=== PATIENT | male | born 1990 | race American Indian/Alaskan Native ===

== ENCOUNTER 2023-08-13 02:06 | Observation (INO) | payer OTHER ==
[2023-08-13] MEDS ORDERED: KETOROLAC TROMETHAMINE 30 MG/1 ML VIAL ONE ×2 (02:37→17:45)
[2023-08-13] MEDS ORDERED: ONDANSETRON 4 MG/2 ML VIAL ONE ×2 (02:37→17:45)
[2023-08-13] MEDS: KETOROLAC TROMETHAMINE 30 MG/1 ML VIAL IM ONE (02:54)
[2023-08-13] MEDS: ONDANSETRON 4 MG/2 ML VIAL IVPUSH ONE (02:54)
[2023-08-13] MEDS ORDERED: HYDROmorphone HCl 2 MG/ML VIAL ONE ×2 (03:00→04:49)
[2023-08-13 03:02] LABS: BASO % 0.3 % (0-2.0); EOS % 1.3 % (0-4.5); HEMATOCRIT 42.1 % (35.4-49); HEMOGLOBIN 14.5 GM/dL (11.7-16.9); LYMPH % 29.9 % (8-40); MCH 30.4 pg (25.7-33.7); MCHC 34.5 g/dl (32.0-35.9); MEAN PLT VOLUME 8.2 fl (7.5-11.1); MONO % 4.8 % (3.8-10.2); NEUT % 63.7 % (42.8-82.8); PLATELET COUNT 220 10^3/uL (134-434); RBC 4.78 M/mm3 (4.00-5.60); RDW 13.2 % (11.9-15.9); WHITE BLOOD COUNT 13.5 K/mm3 (4.0-10.0)
[2023-08-13] MEDS: HYDROmorphone HCl 2 MG/ML VIAL IVPUSH ONE ×2 (03:06→04:52)
[2023-08-13] MEDS: LACTATED RINGERS SOLUTION 1000 ML INFUS.BAG IV ONE ×2 (03:07→05:07)
[2023-08-13 03:11] LABS: INR 1.1 (0.83-1.09); PROTHROMBIN TIME (PATIENT) 12.7 SEC (9.7-13.0)
[2023-08-13 03:13] LABS: ACTIVATED PTT 29.4 SECONDS (25.2-36.5)
[2023-08-13 03:20] LABS: POTASSIUM 3.4 mmol/L (3.5-5.1)
[2023-08-13 03:22] LABS: ALBUMIN 3.9 g/dl (3.4-5.0); CALCIUM 9.4 mg/dL (8.5-10.1)
[2023-08-13 03:23] LABS: BLOOD UREA NITROGEN 10.2 mg/dL (7-18)
[2023-08-13 03:25] LABS: CREATININE 1.1 mg/dL (0.55-1.3)
[2023-08-13 03:27] LABS: BILIRUBIN,TOTAL 0.7 mg/dL (0.2-1); TOT PROT 7.4 g/dl (6.4-8.2)
[2023-08-13] MEDS ORDERED: TAMSULOSIN HCL 0.4 MG CAP ONE (05:01)
[2023-08-13] MEDS: TAMSULOSIN HCL 0.4 MG CAP PO ONE (05:05)
[2023-08-13] MEDS ORDERED: CEFTRIAXONE 1 GM/50 ML BAG ONE (05:06)
[2023-08-13 05:52] LABS: EPI CELLS 25 /uL (0-25.1); HYALINE CASTS 0 /uL (0-3.1); PH,URINE 7.5 (5.0-8.0); URINE APPEARANCE CLEAR; URINE BACTERIA 12 /uL (0-1359); URINE BILIRUBIN NEGATIVE (NEGATIVE); URINE COLOR YELLOW; URINE GLUCOSE (UA) NEGATIVE (NEGATIVE); URINE KETONE NEGATIVE (NEGATIVE); URINE LEUK ESTERASE NEGATIVE (NEGATIVE); URINE NITRITE NEGATIVE (NEGATIVE); URINE PROTEIN NEGATIVE (NEGATIVE); URINE RBC 420 /uL (0-23.9); URINE WBC 19 /uL (0-25.8)
[2023-08-13] MEDS ORDERED: ONDANSETRON 4 MG/2 ML VIAL IVPUSH PRN ×2 (09:09→19:13)
[2023-08-13 10:00] LABS: MAGNESIUM 1.6 mg/dL (1.8-2.4)
[2023-08-13 10:04] LABS: PHOSPHOROUS 2.3 mg/dL (2.5-4.9)
[2023-08-13] MEDS: ACETAMINOPHEN 1000 MG/100 ML BAG IVPB PRN (10:31)
[2023-08-13] MEDS: LACTATED RINGERS SOLUTION 1,000 ML IV SCH (10:37)
[2023-08-13] MEDS: KCL 10 MEQ IVPB 10 MEQ/100 ML INFUS.BAG IVPB SCH (10:40)
[2023-08-13 11:05] VITALS: BMI 22.3
[2023-08-13] MEDS: KETOROLAC TROMETHAMINE 30 MG/1 ML VIAL IVPUSH PRN (13:45)
[2023-08-13] MEDS: NAPH,MB-DB/K PH,MBDB POWDER PACKET PO ONE (15:27)
[2023-08-13] MEDS: MAGNESIUM SULFATE IN WATER 2 GM/50 ML IVPB IVPB ONE (15:27)
[2023-08-13] MEDS: MAGNESIUM SULF 50% (8.12 MEQ/2 ML-1 GM VIAL) IVPB ONE (15:28)
[2023-08-13] MEDS ORDERED: DEXAMETHASONE SOD PHOSPHATE 4 MG/1 ML VIAL ONE (17:45)
[2023-08-13] MEDS ORDERED: LIDOCAINE HCL/PF 2% SDV 5ML VIAL ONE (17:45)
[2023-08-13] MEDS ORDERED: ceFAZolin SODIUM 1 GM VIAL ONE (17:45)
[2023-08-13] MEDS ORDERED: PROPOFOL 20 ML ONE ×2 (17:47→18:00)
[2023-08-13] MEDS ORDERED: FENTANYL CITRATE/PF 50 MCG/ML VIAL ONE ×4 (17:57→19:56)
[2023-08-13] MEDS ORDERED: MIDAZOLAM HCL 2 MG/2 ML SINGLE DOSE VIAL ONE (17:57)
[2023-08-13] MEDS ORDERED: GENTAMICIN SO4 80 MG/2 ML VIAL ONE (18:06)
[2023-08-13] MEDS: ceFAZolin SODIUM 1 GM VIAL IVPB ONE (18:08)
[2023-08-13] MEDS: GENTAMICIN SO4 80 MG/2 ML VIAL IVPB ONE (18:08)
[2023-08-13] MEDS ORDERED: ACETAMINOPHEN INJECTION 100 ML IVPB ONE (18:17)
[2023-08-13] MEDS ORDERED: ACETAMINOPHEN 1000 MG/100 ML BAG IVPB PRN (19:13)
[2023-08-13] MEDS ORDERED: LACTATED RINGERS SOLUTION 1,000 ML IV SCH (19:15)
[2023-08-14] MEDS: KETOROLAC TROMETHAMINE 30 MG/1 ML VIAL IVPUSH PRN (01:32)
[2023-08-14] MEDS ORDERED: CEFTRIAXONE 1,000 MG in DEXTROSE 5%-WATER - 50 ML IVPB ONE (05:00)
[2023-08-14 07:47] LABS: BASO % 0.2 % (0-2.0); HEMATOCRIT 40.8 % (35.4-49); HEMOGLOBIN 13.7 GM/dL (11.7-16.9); LYMPH % 10.2 % (8-40); MCH 29.7 pg (25.7-33.7); MCHC 33.6 g/dl (32.0-35.9); MEAN CELL VOLUME 88.4 fl (80-96); MEAN PLT VOLUME 8.7 fl (7.5-11.1); MONO % 2.2 % (3.8-10.2); NEUT % 87.4 % (42.8-82.8); PLATELET COUNT 198 10^3/uL (134-434); RBC 4.62 M/mm3 (4.00-5.60); RDW 12.9 % (11.9-15.9); WHITE BLOOD COUNT 11.3 K/mm3 (4.0-10.0)
[2023-08-14 07:58] LABS: POTASSIUM 4.3 mmol/L (3.5-5.1)
[2023-08-14 08:06] LABS: CALCIUM 9.2 mg/dL (8.5-10.1)
[2023-08-14 08:07] LABS: ALBUMIN 3.4 g/dl (3.4-5.0)
[2023-08-14 08:09] LABS: BILIRUBIN,TOTAL 1.1 mg/dL (0.2-1); TOT PROT 6.8 g/dl (6.4-8.2)
[2023-08-14 09:36] VITALS: BP 110/61; PULSE 59; RESP 20; TEMP 98.2
[2023-08-14] MEDS: CEFTRIAXONE 1 GM in DEXTROSE 5%-WATER - 50 ML IVPB SCH (09:55)
[2023-08-14] MEDS ORDERED: CEFTRIAXONE 1 GM in DEXTROSE 5%-WATER - 50 ML IVPB SCH (10:00)
[2023-08-14] MEDS ORDERED: TAMSULOSIN HCL 0.4 MG CAP PO ONE (10:00)
== END 2023-08-14 12:45 | disposition home or self-care (01) ==
LOC: JER 02:06 → JERBED 05:31 → J8W 09:00
PROVIDERS: ADMIT Internal Medicine; ATTEND Nurse Practitioner Family
PROC: 3E033NZ Introduction of Analgesics, Hypnotics, Sedatives into Peripheral Vein, Percutaneous Approach (ICD-10-PCS; 2023-08-13)
PROC: 3E0233Z Introduction of Anti-inflammatory into Muscle, Percutaneous Approach (ICD-10-PCS; 2023-08-13)
PROC: 3E0337Z Introduction of Electrolytic and Water Balance Substance into Peripheral Vein, Percutaneous Approach (ICD-10-PCS; 2023-08-13)
PROC: 0TC78ZZ Extirpation of Matter from Left Ureter, Via Natural or Artificial Opening Endoscopic (ICD-10-PCS; 2023-08-13)
PROC: 0T778DZ Dilation of Left Ureter with Intraluminal Device, Via Natural or Artificial Opening Endoscopic (ICD-10-PCS; 2023-08-13)
PROC: 3E033NZ Introduction of Analgesics, Hypnotics, Sedatives into Peripheral Vein, Percutaneous Approach (ICD-10-PCS; principal; 2023-08-13 17:30)
PROC: 3E03329 Introduction of Other Anti-infective into Peripheral Vein, Percutaneous Approach (ICD-10-PCS; 2023-08-13 17:30)
PROC: 3E033NZ Introduction of Analgesics, Hypnotics, Sedatives into Peripheral Vein, Percutaneous Approach (ICD-10-PCS; 2023-08-13 17:30)
DX: N13.2 Hydronephrosis with renal and ureteral calculous obstruction (principal); N12 Tubulo-interstitial nephritis, not specified as acute or chronic; D72.829 Elevated white blood cell count, unspecified
CPT/HCPCS: 36415; 74177-TC; 76000-TC-FY; 76870-TC; 80053; 81003; 82360; 83735; 84100; 85025; 85610; 85730; 86850; 86900; 86901; 87040; 87086; 88300-TC; 93005; 93010; 94760; 96361; 96365; 96372; 96375; 96376; 99285-25; C1758; C2617; G0378; J0131